=== PATIENT | female | born 1995 | race Caucasian/White ===

== ENCOUNTER 2019-09-02 13:30 | Emergency (ER) | payer OTHER ==
[~2019-09-02] VITALS: Ht 167.6 cm; Wt 76.7 kg
[2019-09-02] MEDS ORDERED: TUSNEL LIQUID178 ML PO (17:36)
[2019-09-02] MEDS ORDERED: OSEL75CA PO (17:36)
== END 2019-09-02 17:41 | disposition home or self-care (01) ==
LOC: ER 13:30
DX: B34.9 Viral infection, unspecified (principal); J09.X2 Influenza due to identified novel influenza A virus with other respiratory manifestations

== ENCOUNTER 2020-01-18 15:06 | Inpatient (IN) | payer OTHER ==
[~2020-01-18] VITALS: Ht 167.6 cm; Wt 87.1 kg
[~2020-01-18 15:06] MED LIST: OSEL75CA PO; TUSNEL LIQUID178 ML PO
[2020-01-18] MEDS ORDERED: PRENATAL TABLE1 EAC1 PO (22:50)
[2020-01-22] MEDS ORDERED: Tylenol #3 PO (11:58)
== END 2020-01-22 12:34 | DRG 788 ==
LOC: LDR 15:06 → SURG-SUITE 15:06 → LDR 19:48 → OB/GYN 01-19 14:12 → SURG-SUITE 01-19 21:50
PROVIDERS: Obstetrics & Gynecology; ADMIT Obstetrics & Gynecology
PROC: 4A1HXCZ Monitoring of Products of Conception, Cardiac Rate, External Approach (ICD-10-PCS; 2020-01-18)
PROC: 4A033R1 Measurement of Arterial Saturation, Peripheral, Percutaneous Approach (ICD-10-PCS; 2020-01-18)
PROC: 10D00Z1 Extraction of Products of Conception, Low, Open Approach (ICD-10-PCS; principal; 2020-01-19 12:00)
DX: O76 Abnormality in fetal heart rate and rhythm complicating labor and delivery (principal); Z3A.40 40 weeks gestation of pregnancy; Z37.0 Single live birth